=== PATIENT | male | born 1990 | race African-American/Black ===

== ENCOUNTER 2021-12-06 13:03 | Emergency (ER) | payer SELFPAY ==
[2021-12-06] MEDS ORDERED: metroNIDAZOLE 500 MG TABLET ONE (14:11)
[2021-12-06] MEDS ORDERED: AZITHROMYCIN 250 MG TAB ONE (14:12)
[2021-12-06] MEDS ORDERED: CEFTRIAXONE 1000 MG/VIAL ONE (14:12)
--- NOTE | 2021-12-06 14:52 | ER ---
Nurse's Notes [facility] Name: Rome Fritz Age: 31 yrs Sex: Male : 1990 Arrival Date: 12/06/2021 Time: 13:06 Bed 7 Private MD: Diagnosis: Exposure to Sexually Transmitted Infection Presentation: 12/06 13:19 Chief complaint: Patient states: "My partner tested positive for Trichomoniasis and she vg1 told me that I needed to go to a doctor to get tested; I dont have a doctor because I just moved out here" Denies pain or discharge to penis. Coronavirus screen: Vaccine status: Patient reports receiving the 1st dose of the Covid vaccine. Client denies travel out of the [place] in the last 14 days. Ebola Screen: Patient denies exposure to infectious person. Patient denies travel to an Ebola-affected area in the 21 days before illness onset. Initial Sepsis Screen: Does the patient meet any 2 criteria? No. Patient's initial sepsis screen is negative. Does the patient have a suspected source of infection? No. Patient's initial sepsis screen is negative. Risk Assessment: Do you want to hurt yourself or someone else? Patient reports no desire to harm self or others. Onset of symptoms was December 06, 2021. 13:19 Method Of Arrival: Ambulatory 1 13:19 Acuity: MELDOY 4 vg1 Triage Assessment: 13:23 General: Appears comfortable, Behavior is calm, cooperative. Pain: Denies pain. Neuro: vg1 Level of Consciousness is awake, alert, obeys commands, Oriented to person, place, time, situation. Historical: - Allergies: 13:23 No Known Allergies; vg1 - Home Meds: 13:23 None [Active]; vg1 - PMHx: 13:23 None; vg1 - PSHx: 13:23 None; vg1 - Immunization history:: Client reports receiving the 1st dose of the Covid vaccine. - Social history:: Smoking status: Patient denies any tobacco usage or history of. Screenin:30 Abuse screen: Denies threats or abuse. Denies injuries from another. Nutritional bp screening: No deficits noted. Tuberculosis screening: No symptoms or risk factors identified. Fall Risk None identified. Assessment: 13:30 General: SEE TRIAGE NOTE. bp 15:04 Reassessment: PT D/C HOME AMBULATORY, DX WITH STD EXPOSURE. bp Vital Signs: 13:19 BP 134 / 90; Pulse 60; Resp 16; Temp 99.1(TE); Pulse Ox 100% on R/A; Weight 77.11 kg; vg1 Height 6 ft. 3 in. (190.50 cm); Pain 0/10; 13:19 Body Mass Index 21.25 (77.11 kg, 190.50 cm) vg1 ED Course: 13:06 Patient arrived in ED. rg4 13:11 Luca Burkett PA is PHCP. jmm 13:11 Oliver Torres MD is Attending Physician. jmm 13:23 Triage completed. vg1 13:23 Arm band placed on. vg1 13:27 Benny Soliman, RN is Primary Nurse. jd3 13:30 Patient has correct armband on for positive identification. Bed in low position. Call bp light in reach. Side rails up X2. 14:51 Gautam Yang MD is Referral Physician. [facility] 15:05 No provider procedures requiring assistance completed. Patient did not have IV access bp during this emergency room visit. Administered Medications: 14:14 Drug: Flagyl (metroNIDAZOLE) 2 grams Route: PO; jd3 15:05 Follow up: Response: No adverse reaction bp 14:14 Drug: Rocephin (cefTRIAXone) 1 grams Route: IM; Site: right gluteus; jd3 15:05 Follow up: Response: No adverse reaction bp 14:14 Drug: AZITHromycin 1 grams Route: PO; jd3 15:05 Follow up: Response: No adverse reaction bp Medication: 15:05 VIS not applicable for this client. jd3 Outcome: 14:52 Discharge ordered by . jmm 15:05 Discharged to home ambulatory. bp 15:05 Condition: good 15:05 Discharge instructions given to patient, Instructed on discharge instructions, follow up and referral plans. Demonstrated understanding of instructions, follow-up care. 15:06 Patient left the ED. bp Signatures: Luca Burkett PA PA jmm Garcia, Rubi rg4 Benny Soliman, RN RN jRandy Cutler RN RN Casi Nguyen RN RN vg1
--- NOTE | 2021-12-06 14:52 | EDPHYS ---
Physician Documentation [facility] Name: Rome Fritz Age: 31 yrs Sex: Male : 1990 Arrival Date: 12/06/2021 Time: 13:06 Bed 7 Private MD: RAFAEL Physician Oliver Torres HPI: 12/06 13:42 This 31 yrs old Black Male presents to ER via Ambulatory with complaints of STD jmm Exposure. 13:42 The patient presents with a known STD exposure, with a history of engaging in sex with jmm multiple partners, did not use protection. Onset: The symptoms/episode began/occurred today. Modifying factors: The symptoms are alleviated by nothing, the symptoms are aggravated by nothing. Associated signs and symptoms: Pertinent negatives: abdominal pain, constipation, diarrhea, dysuria, fever, hematuria, nausea, vomiting. It is unknown whether or not the patient has had similar symptoms in the past. Historical: - Allergies: 13:23 No Known Allergies; vg1 - Home Meds: 13:23 None [Active]; vg1 - PMHx: 13:23 None; vg1 - PSHx: 13:23 None; vg1 - Immunization history:: Client reports receiving the 1st dose of the Covid vaccine. - Social history:: Smoking status: Patient denies any tobacco usage or history of. ROS: 13:42 Constitutional: Negative for fever, chills, and weight loss, Cardiovascular: Negative jmm for chest pain, palpitations, and edema, Respiratory: Negative for shortness of breath, cough, wheezing, and pleuritic chest pain. 13:42 All other systems are negative. Exam: 13:42 Constitutional: This is a well developed, well nourished patient who is awake, alert, jmm and in no acute distress. Head/Face: atraumatic. Eyes: EOMI, no conjunctival erythema appreciated ENT: Moist Mucus Membranes Neck: Trachea midline, Supple Chest/axilla: Normal chest wall appearance and motion. Cardiovascular: Regular rate and rhythm. No edema appreciated Respiratory: Normal respirations, no respiratory distress appreciated Abdomen/GI: Non distended, soft Back: Normal ROM Skin: General appearance color normal 13:42 Musculoskeletal/extremity: ROM: intact in all extremities. 13:42 Skin: Appearance: Color: normal in color. 13:42 Neuro: Orientation: is normal, Mentation: is normal, Memory: is normal. 13:42 Psych: Behavior/mood is pleasant, cooperative. Vital Signs: 13:19 BP 134 / 90; Pulse 60; Resp 16; Temp 99.1(TE); Pulse Ox 100% on R/A; Weight 77.11 kg; vg1 Height 6 ft. 3 in. (190.50 cm); Pain 0/10; 13:19 Body Mass Index 21.25 (77.11 kg, 190.50 cm) vg1 MDM: 13:42 Patient medically screened. [facility] 14:44 Data reviewed: vital signs, nurses notes. Counseling: I had a detailed discussion with jm the patient and/or guardian regarding: the historical points, exam findings, and any diagnostic results supporting the discharge/admit diagnosis. 14:50 Counseling: I had a detailed discussion with the patient and/or guardian regarding: the jm need for outpatient follow up, to return to the emergency department if symptoms worsen or persist or if there are any questions or concerns that arise at home. Administered Medications: 14:14 Drug: Flagyl (metroNIDAZOLE) 2 grams Route: PO; jd3 15:05 Follow up: Response: No adverse reaction bp 14:14 Drug: Rocephin (cefTRIAXone) 1 grams Route: IM; Site: right gluteus; jd3 15:05 Follow up: Response: No adverse reaction bp 14:14 Drug: AZITHromycin 1 grams Route: PO; jd3 15:05 Follow up: Response: No adverse reaction bp Disposition Summary: 12/06/21 14:52 Discharge Ordered Location: Home [facility] Condition: Stable [facility] Diagnosis - Exposure to Sexually Transmitted Infection [facility] Followup: [facility] - With: Gautam Yang MD - When: 2 - 3 days - Reason: Recheck today's complaints, Continuance of care, Re-evaluation by your physician Discharge Instructions: - Discharge Summary Sheet [facility] - Preventing Sexually Transmitted Infections, Adult [facility] Forms: - Medication Reconciliation Form [facility] - Thank You Letter [facility] - Antibiotic Education [facility] - Prescription Opioid Use [facility] Signatures: Luca Burkett PA PA Benny Vaz RN RN Casi Mercer RN RN vg1 Randy Hernandes RN bp
[2021-12-06 15:27] VITALS: BP 134/90; TEMP 99.1; O2SAT 100
== END 2021-12-06 15:06 | disposition home or self-care (01) ==
LOC: ER 13:03
DX: Z20.2 Contact with and (suspected) exposure to infections with a predominantly sexual mode of transmission (principal)
CPT/HCPCS: 96372; 99283

== ENCOUNTER 2024-08-23 14:33 | Emergency (ER) | payer OTHER, SELFPAY ==
--- NOTE | 2024-08-23 15:16 | RAD REPORT ---
EXAM: Chest Single View HISTORY: PAIN COMPARISON: None. FINDINGS: LUNGS/PLEURA: The lungs are clear. No pleural effusions or pneumothorax. No pulmonary edema. MEDIASTINUM: The mediastinal silhouette is within normal limits. CARDIAC: The cardiac silhouette is within normal limits. UPPER ABDOMEN: No significant abnormality. BONES: No acute abnormality. LINES/TUBES/OTHER: Small radiopaque densities overlying the left hemithorax near the lower margin of the eighth rib and between the 9th and 10th intercostal space. In the absence of a lateral view, the location cannot be ascertained. Correlate clinically. IMPRESSION: No evidence of acute cardiopulmonary disease. Radiopaque densities as noted above.
[2024-08-23 16:45] LABS: Absolute Basophils 0.1 K/uL (0-0.5); Absolute Eosinophils 0.1 K/uL (0-0.5); Absolute Lymphocytes (CBC) 1.6 K/uL (0.7-4.9); Absolute Monocytes 0.8 K/uL (0.1-1.3); Absolute Neutrophil 5.2 K/uL (1.8-8.0); Basophils % 0.7 % (0-1.3); Eosinophils % 1.8 % (0-4.4); Hematocrit 36.8 % (39.6-49.0); Hemoglobin 12.3 g/dL (13.6-17.9); MCH 30.1 pg (27.0-35.0); MCHC 33.4 g/dL (32.0-36.0); MCV 90.3 fL (80-100); MPV 7.2 fL (7.6-11.3); Monocytes % 10.5 % (3.3-12.3); Nucleated Red Blood Cells % 0.1 % (0-0); Platelets 468 thou/uL (152-406); RBC Red Blood Cell Count 4.08 M/uL (4.33-5.43); Red Cell Distribution Width 14.2 % (12.1-15.2)
[2024-08-23 17:10] LABS: Albumin 2.7 g/dL (3.4-5.0); Albumin/Globulin Ratio 0.5 (1.1-1.8); Anion Gap 4.7 mEq/L (5.0-15.0); Bilirubin Total 0.4 mg/dL (0.2-1.0); Globulin 5.1 g/dL (2.3-3.5); Potassium 3.7 mEq/L (3.5-5.1); Protein, Total 7.8 g/dL (6.4-8.2)
--- NOTE | 2024-08-23 17:51 | RAD REPORT ---
EXAMINATION: CT ABDOMEN AND PELVIS WITH CONTRAST CLINICAL INDICATION: Male, 34 years old.ABD PAIN TECHNIQUE: CT abdomen and pelvis was performed, after the administration of IV contrast, [facility]. Axial, sagittal and coronal reconstructions were obtained. One or more of the following dose reduction techniques were used: Automated exposure control, adjustment of the mA and/o r kV according to patient size, and/or iterative reconstruction. Unless otherwise specified, incidental findings do not require dedicated imaging follow-up. [id number]. COMPARISON: No prior exam. FINDINGS: LOWER CHEST: No acute process identified.No significant pericardial effusion. UPPER GI: No significant abnormality. LIVER: No significant focal abnormality. GALLBLADDER/BILE DUCTS: No biliary ductal dilatation.? PANCREAS: No mass, ductal dilation, or anat-pancreatic fluid. SPLEEN: Unremarkable. ADRENALS: No adrenal masses. KIDNEYS AND URETERS: No hydronephrosis.No suspicious renal mass. ABDOMINAL AORTA AND OTHER VESSELS: Normal caliber aorta and IVC. PERITONEUM: No abnormal free fluid. No free air. LYMPH NODES: No pathologic lymphadenopathy. ABDOMINAL WALL: Unremarkable SMALL BOWEL/COLON: Small bowel has normal course and caliber. No colonic wall thickening or pericolon ic inflammatory changes.Normal appendix. Moderate colonic stool. URINARY BLADDER: Underdistended but grossly unremarkable. REPRODUCTIVE ORGANS: No pathologic process. MUSCULOSKELETAL: ADDITIONAL FINDINGS: None. IMPRESSION: No acute or significant abnormalities seen in the abdomen or pelvis. Moderate colonic stool. Normal a ppendix.
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
--- NOTE | 2024-08-23 18:30 | ER ---
Nurse's Notes [facility] Name: Rome Fritz Age: 34 yrs Sex: Male : 1990 Arrival Date: 08/23/2024 Time: 14:33 Bed 5 Private MD: Diagnosis: Chronic pain syndrome;Pressure ulcer of buttock;Constipation Presentation: 08/23 14:46 Chief complaint: Patient states: Rib pain, abdominal pain, wound to buttocks. ld1 Coronavirus screen: At this time, the client does not indicate any symptoms associated with coronavirus-19. Ebola Screen: No symptoms or risks identified at this time. Initial Sepsis Screen: Does the patient meet any 2 criteria? No. Patient's initial sepsis screen is negative. Does the patient have a suspected source of infection? No. Patient's initial sepsis screen is negative. Risk Assessment: Do you want to hurt yourself or someone else? Patient reports no desire to harm self or others. Onset of symptoms was August 23, 2024. 14:46 Method Of Arrival: Wheelchair ld1 14:46 Acuity: MELODY 3 ld1 Triage Assessment: 14:48 General: Appears in no apparent distress. uncomfortable, Behavior is calm, cooperative, ld1 appropriate for age. Pain: Complains of pain in back Pain does not radiate. Pain currently is 8 out of 10 on a pain scale. Quality of pain is described as throbbing. EENT: No signs and/or symptoms were reported regarding the EENT system. Neuro: Level of Consciousness is awake, alert, obeys commands, Oriented to person, place, time, situation, Appropriate for age. Cardiovascular: Capillary refill < 3 seconds Patient's skin is warm and dry. Respiratory: Airway is patent Respiratory effort is even, unlabored. GI: Abdomen is flat, non-distended. : No signs and/or symptoms were reported regarding the genitourinary system. Derm: No signs and/or symptoms reported regarding the dermatologic system. Musculoskeletal: No signs and/or symptoms reported regarding the musculoskeletal system. Historical: - Allergies: 14:48 No Known Allergies; ld1 - PMHx: 14:48 Spinal injury; ld1 - Immunization history:: Adult Immunizations up to date. - Infectious Disease History:: Denies. - Social history:: Smoking status: Patient denies any tobacco usage or history of. Screenin:36 [facility] ED Fall Risk Assessment (Adult) History of falling in the last 3 months, ph including since admission No falls in past 3 months (0 pts) Confusion or Disorientation No (0 pts) Intoxicated or Sedated No (0 pts) Impaired Gait Yes (1 pt) Mobility Assist Device Used Yes (1 pt) Altered Elimination No (0 pt) Score/Fall Risk Level 0 - 2 = Low Risk Oriented to surroundings, Maintained a safe environment, Hourly rounding (assess needs \T\ fall precautionary measures) done. Abuse screen: Denies threats or abuse. Denies injuries from another. Nutritional screening: No deficits noted. Tuberculosis screening: No symptoms or risk factors identified. Assessment: 17:00 General: Appears in no apparent distress. comfortable, slender, Behavior is calm, ph cooperative, appropriate for age, Denies fever. Pain: Complains of pain in back. Neuro: Level of Consciousness is awake, alert, obeys commands, Oriented to person, place, time, situation. Cardiovascular: Capillary refill < 3 seconds in bilateral fingers Patient's skin is warm and dry. Respiratory: Airway is patent Respiratory effort is even, unlabored. GI: Reports constipation. Derm: Skin is pink, warm \T\ dry. Decubitus located on left buttock. Vital Signs: 14:46 BP 141 / 86; Pulse 72; Resp 18; Temp 98.4(TE); Pulse Ox 100% on R/A; Weight 68.04 kg; ld1 Height 6 ft. 2 in. ; Pain 10/10; 17:00 BP 136 / 78; Pulse 71; Resp 18; Pulse Ox 98% on R/A; ph 14:46 Body Mass Index 19.26 (68.04 kg, 187.96 cm) ld1 14:46 Pain Scale: Adult ld1 ED Course: 14:37 Patient arrived in ED. al6 14:38 Gianna Larios FNP-C is [facility]. kb 14:38 Roman Arcos MD is Attending Physician. kb 14:48 Triage completed. ld1 14:48 Arm band placed on right wrist. ld1 15:03 Chest Single View XRAY In Process Unspecified. EDMS 15:24 Radiology exam delayed due to lab results not completed at this time. (BUN/Creatinine) nj IV insertion attempt and/or patient not having appropriate IV at this time. 15:30 Initial lab(s) drawn, by ED staff, sent to lab. Inserted saline lock: 22 gauge in right ph antecubital area, using aseptic technique. Blood collected. Flushed with 10 mL NS. 17:30 Patient has correct armband on for positive identification. Bed in low position. Call ph light in reach. Side rails up X 1. Pulse ox on. NIBP on. Door closed. Noise minimized. Warm blanket given. 18:17 Kathia New, RN is Primary Nurse. ph 18:26 CT In Process Unspecified. EDMS 18:55 No provider procedures requiring assistance completed. IV discontinued, intact, ph bleeding controlled, No redness/swelling at site. Pressure dressing applied. Administered Medications: No medications were administered Medication: 18:37 VIS not applicable for this client. ph Outcome: 18:29 Discharge ordered by . kb 18:55 Patient left the ED. ph 18:55 Discharged to home via wheelchair, ph 18:55 Condition: good 18:55 Discharge instructions given to patient, Instructed on discharge instructions, follow up and referral plans. Demonstrated understanding of instructions, follow-up care, Signatures: Dispatcher [employer] EDMS Gianna Larios, DUMP MOTORMAN-C DUMP MOTORMAN-CkKathia Deng, RN RN Juan Manuel Figueroa Lauren, RIAZ RN ld1 Wilma Balderrama6
[2024-08-23 21:26] VITALS: TEMP 98.4
[2024-08-23 21:27] VITALS: BP 136/78; O2SAT 98
== END 2024-08-23 18:55 | disposition home or self-care (01) ==
LOC: ER 14:33
DX: G89.4 Chronic pain syndrome (principal); L89.329 Pressure ulcer of left buttock, unspecified stage; K59.00 Constipation, unspecified; G82.20 Paraplegia, unspecified
CPT/HCPCS: 85025; 36415; 80053; 74177; 71045; 99284; Q9967